=== PATIENT | female | born 1990 | race Caucasian/White ===

== ENCOUNTER 2016-08-16 05:03 | Emergency (ER) | payer OTHER ==
[~2016-08-16] VITALS: Ht 172.7 cm; Wt 92.4 kg
[~2016-08-16 05:03] MED LIST: TOPI25 PO
[2016-08-16 05:10] VITALS: BP 133/86; PULSE 60; RESP 18; TEMP 98.2; O2SAT 99
[2016-08-16 05:20] VITALS: BP 119/77; PULSE 56; RESP 18; O2SAT 100
[2016-08-16] MEDS ORDERED: SODIUM CHLORIDE 0.9% FLUSH 5 ML FLUSH IVF PRN (06:15)
[2016-08-16] MEDS ORDERED: SODIUM CHLOR 0.9% 1000 ML INJ 1,000 ML IV SCH (06:15)
[2016-08-16] MEDS ORDERED: ONDANSETRON HCL 4 MG/2 ML VIAL IVP ONE (06:15)
[2016-08-16] MEDS ORDERED: MORPHINE SULFATE 4 MG/ML INJ IV PUSH ONE (06:15)
--- NOTE | 2016-08-16 06:15 | PD ---
HPI Chief Complaint: GI Complaint Time Seen by Provider: 05:57 Travel History International Travel<30 days: No Contact w/Intl Traveler<30days: No Traveled to known affect area: No History of Present Illness HPI The patient is a 26-year-old female that complains of primarily lower abdominal pain along with diarrhea and nausea without vomiting for 4 years intermittently. It is been bothering her for the past 3 hours. She denies any blood in the stool or fever. She denies any foreign travel in the last 4 years. She has never had any abdominal surgery and still has her gallbladder and appendix. Her mother has lupus but she is not aware of any bowel problems running in the family. The patient is not sexually active with men. PFSH Past Medical History Asthma: Yes (childhood) Blood Disorders: No Cancer: No Cardiovascular Problems: No Diminished Hearing: No Endocrine: No Genitourinary: Yes (kidney stones) Immune Disorder: No Kidney Stones: Yes Musculoskeletal: No Neurologic: Yes (seizures) Psychiatric: Yes (bipolar, ptsd, borderline schizophrenia) Reproductive: No Immunizations Current: Yes Schizophrenia: Yes Seizures: Yes Tetanus Vaccination: < 5 Years Influenza Vaccination: No ?: Not LMP: 3 WEEKS AGO : 1 Para: 1 Past Surgical History Tonsillectomy: Yes Other Surgery: Yes (tonsillectomy) Social History Alcohol Use: Yes (OCC) Tobacco Use: Yes (1 PPD) Substance Use: No Allergies-Medications (Allergen,Severity, Reaction): Coded Allergies: [place] (Verified Allergy, Severe, RASH, 08/16/16) Latex (Verified Allergy, Severe, RASH, 08/16/16) Reported Meds & Prescriptions Reported Meds & Active Scripts Active Phenergan (Promethazine HCl) 25 Mg Tab 25 Mg PO Q6H PRN Lortab (Hydrocodone-Acetaminophen) 5-325 Mg Tab 1 Tab PO Q6H PRN Review of Systems Except as stated in HPI: all other systems reviewed are Neg Physical Exam Narrative GENERAL: Slightly dehydrated-appearing, well-developed patient in slight apparent distress with her abdominal discomfort. The vital signs are normal. SKIN: Warm and dry. HEAD: Normocephalic. EYES: No scleral icterus. No injection or drainage. NECK: Supple, trachea midline. No JVD or lymphadenopathy. CARDIOVASCULAR: Regular rate and rhythm without murmurs, gallops, or rubs. RESPIRATORY: Breath sounds equal bilaterally. No accessory muscle use. GASTROINTESTINAL: Abdomen soft, with tenderness in bilateral lower quadrants without guarding or rebound, nondistended. MUSCULOSKELETAL: No cyanosis, or edema. BACK: Nontender without obvious deformity. No CVA tenderness. Data Data Last Documented VS Vital Signs Date Time Temp Pulse Resp B/P Pulse Ox O2 Delivery O2 Flow Rate FiO2 08/16/16 05:20 56 18 119/77 100 Room Air 08/16/16 05:10 98.2 Orders Complete Blood Count With Diff (08/16/16 06:15) Comprehensive Metabolic Panel (08/16/16 06:15) Lipase (08/16/16 06:15) Urinalysis - C+S If Indicated (08/16/16 06:15) Ct Abd/Pel W Iv Contrast(Rout) (08/16/16 06:15) Iv Access Insert/Monitor (08/16/16 06:15) Ecg Monitoring (08/16/16 06:15) Oximetry (08/16/16 06:15) Morphine Inj (Morphine Inj) (08/16/16 06:15) Ondansetron Inj (Zofran Inj) (08/16/16 06:15) Sodium Chlor 0.9% 1000 Ml Inj (Ns 1000 M (08/16/16 06:15) Sodium Chloride 0.9% Flush (Ns Flush) (08/16/16 06:15) Iohexol 350 Inj (Omnipaque 350 Inj) (08/16/16 06:35) Labs Laboratory Tests Test 08/16/16 06:53 White Blood Count 7.1 TH/MM3 Red Blood Count 4.40 MIL/MM3 Hemoglobin 14.0 GM/DL Hematocrit 40.5 % Mean Corpuscular Volume 92.2 FL Mean Corpuscular Hemoglobin 31.9 PG Mean Corpuscular Hemoglobin 34.6 % Concent Red Cell Distribution Width 12.4 % Platelet Count 197 TH/MM3 Mean Platelet Volume 9.4 FL Neutrophils (%) (Auto) 57.9 % Lymphocytes (%) (Auto) 33.3 % Monocytes (%) (Auto) 6.5 % Eosinophils (%) (Auto) 1.5 % Basophils (%) (Auto) 0.8 % Neutrophils # (Auto) 4.0 TH/MM3 Lymphocytes # (Auto) 2.4 TH/MM3 Monocytes # (Auto) 0.5 TH/MM3 Eosinophils # (Auto) 0.1 TH/MM3 Basophils # (Auto) 0.1 TH/MM3 CBC Comment DIFF FINAL Differential Comment MDM Medical Decision Making Medical Screen Exam Complete: Yes Emergency Medical Condition: Yes Medical Record Reviewed: Yes Interpretation(s) The CT abdomen/pelvis with IV contrast shows no acute abnormality and a tiny nonobstructive left renal stone. The CBC is completely normal. Differential Diagnosis Irritable bowel syndrome, colitis, diverticulitis, abdominal pain etiology undetermined Narrative Course The patient has chronic abdominal pain etiology undetermined. The CT scan is normal. The patient needs to follow-up with a manager project for her chronic abdominal symptoms. She will be given Phenergan. Lortab 5 is given for pain as well as her diarrhea which she states is been very bad. Diagnosis Primary Impression: Chronic abdominal pain Additional Instructions: As we discussed, follow-up with a manager project. These pins have been going on for 4 years and you likely will benefit from endoscopy. Med/Other Pt SpecificInfo: Prescription(s) given Scripts Promethazine (Phenergan)25 Mg Tab25 Mg PO Q6H PRN (Nausea/Vomiting) #30 TAB Ref 0 Prov:Farhat Calderon MD 08/16/16 Hydrocodone-Acetaminophen (Lortab)5-325 Mg Tab1 Tab PO Q6H PRN (PAIN) #20 TAB Ref 0 Prov:Farhat Calderon MD 08/16/16 Disposition: 01 DISCHARGE HOME Condition: Stable Farhat Calderon MD Aug 16, 2016 06:15 Farhat Calderon MD Aug 16, 2016 06:15
[2016-08-16] MEDS ORDERED: IOHEXOL 350 MG/ML 10 ML VIAL (for RAD DIAG) IV ONE (06:35)
--- NOTE | 2016-08-16 06:48 | RADHPO ---
EXAM DATE/TIME: 08/16/2016 06:28 [facility] COMPARISON: No previous studies available for comparison. INDICATIONS : Lower abdominal pain today with diarrhea. IV CONTRAST: 80 cc Omnipaque 350 (iohexol) IV ORAL CONTRAST: No oral contrast ingested. RADIATION DOSE: 17.92 CTDIvol (mGy) MEDICAL HISTORY : Renal calculi. SURGICAL HISTORY : None. ENCOUNTER: Initial ACUITY: 1 day PAIN SCALE: 7/10 LOCATION: lower quadrant abdomen TECHNIQUE: Volumetric scanning of the abdomen and pelvis was performed. Using automated exposure control and ad justment of the mA and/or kV according to patient size, radiation dose was kept as low as reasonably achievable to obtain optimal diagnostic quality images. FINDINGS: LOWER LUNGS: The visualized lower lungs are clear. LIVER: Homogeneous density without lesion. There is no dilation of the biliary tree. No calcified gallston es. SPLEEN: Normal size without lesion. PANCREAS: Within normal limits. KIDNEYS: Normal in size and shape. There is no mass or hydronephrosis. There is a 2 mm nonobstructing left re nal stone. ADRENAL GLANDS: Within normal limits. VASCULAR: There is no aortic aneurysm. BOWEL/MESENTERY: The stomach, small bowel, and colon demonstrate no acute abnormality. There is no free intraperitone al air or fluid. The appendix is normal. ABDOMINAL WALL: Within normal limits. RETROPERITONEUM: There is no lymphadenopathy. BLADDER: No wall thickening or mass. REPRODUCTIVE: Within normal limits. INGUINAL: There is no lymphadenopathy or hernia. MUSCULOSKELETAL: Within normal limits for patient age. CONCLUSION: 1. No acute abnormality seen. 2. Tiny nonobstructing left renal stone. Yosef Kennedy MD on August 16, 2016 at 6:41 Board Certified Radiologist. This report was verified electronically.
[2016-08-16 07:03] LABS: BASOPHIL # 0.1 TH/MM3 (0-0.2); BASOPHIL % 0.8 % (0.0-2.0); EOSINOPHIL # 0.1 TH/MM3 (0-0.4); EOSINOPHIL % 1.5 % (0.0-4.0); HEMATOCRIT 40.5 % (35.0-46.0); HEMO FLAGS DIFF FINAL; LYMPH % 33.3 % (9.0-44.0); LYMPHOCYTE # 2.4 TH/MM3 (1.0-4.8); MEAN CELL VOLUME 92.2 FL (80.0-100.0); MEAN CORPUSCULAR HEMOGLOBIN 31.9 PG (27.0-34.0); MEAN CORPUSCULAR HGB CONC 34.6 % (32.0-36.0); MONO % 6.5 % (0.0-8.0); NEUT % 57.9 % (16.0-70.0); PLATELET COUNT 197 TH/MM3 (150-450); RED CELL DISTRIBUTION WIDTH 12.4 % (11.6-17.2); WHITE BLOOD COUNT 7.1 TH/MM3 (4.0-11.0)
[2016-08-16] MEDS ORDERED: PROM25TA5 PO (07:09)
[2016-08-16] MEDS ORDERED: HYDR-3533 PO (07:09)
[2016-08-16 07:10] VITALS: BP 112/78; PULSE 49; RESP 16; TEMP 98; O2SAT 99
[2016-08-16 07:12] LABS: BLOOD, URINE NEG (NEG); GLUCOSE,URINE NEG (NEG); KETONE, URINE NEG (NEG); NITRITE,URINE NEG (NEG)
[2016-08-16 07:14] LABS: CHLORIDE 106 MEQ/L (98-107); POTASSIUM 3.8 MEQ/L (3.5-5.1); SODIUM (NA) 139 MEQ/L (136-145)
[2016-08-16 07:16] LABS: METHOD OF COLLECTION CLEAN CATCH; URINE COLOR YELLOW (YELLW/STRAW)
[2016-08-16 07:18] LABS: COMMENT (UR) CULT NOT INDICATED; CULTURE IF INDICATED CULT NOT INDICATED; SQUAMOUS EPITHELIAL CELL URINE 0-5 /hpf (0-5); WBC, URINE 0-2 /hpf (0-5)
[2016-08-16 07:19] LABS: ANION GAP 9 MEQ/L (5-15); BICARBONATE 24.5 MEQ/L (21.0-32.0); BLOOD UREA NITROGEN 11 MG/DL (7-18)
[2016-08-16 07:21] LABS: ALT (GPT) 18 U/L (10-53); AST (GOT) 11 U/L (15-37)
[2016-08-16 07:22] LABS: GLOMERULAR FILTRATION RATE 132 ML/MIN (>89)
[2016-08-16 07:23] LABS: TOTAL BILIRUBIN ADULT 0.3 MG/DL (0.2-1.0)
[2016-08-16 07:24] LABS: ALKALINE PHOSPHATASE 68 U/L (45-117)
== END 2016-08-16 07:47 | disposition home or self-care (01) ==
LOC: PHED 05:03
DX: R10.84 Generalized abdominal pain (principal); G89.29 Other chronic pain; R19.7 Diarrhea, unspecified; R11.0 Nausea; Z87.442 Personal history of urinary calculi; F17.210 Nicotine dependence, cigarettes, uncomplicated
CPT/HCPCS: 74177; 80053; 81001; 83690; 85025; 96361; 96374; 96375; 99284; J2270; J2405; J7030; Q9967

== ENCOUNTER 2016-08-22 08:56 | Emergency (ER) | payer OTHER ==
[~2016-08-22] VITALS: Ht 172.7 cm; Wt 94.0 kg
[~2016-08-22 08:56] MED LIST changes: +HYDR-3533 PO; +PROM25TA5 PO; -TOPI25 PO
[2016-08-22 09:04] VITALS: BP 135/80; PULSE 79; RESP 16; TEMP 98.2; O2SAT 98
[2016-08-22] MEDS ORDERED: IBUPROFEN 600 MG TAB PO ONE (09:30)
--- NOTE | 2016-08-22 09:35 | RADHPO ---
EXAM DATE/TIME: 08/22/2016 09:24 [facility] COMPARISON: No previous studies available for comparison. INDICATIONS : Left foot pain after fall MEDICAL HISTORY : None. SURGICAL HISTORY : None. ENCOUNTER: Initial ACUITY: 2 days PAIN SCORE: 10/10 LOCATION: Left lateral foot. FINDINGS: Two view examination of the left foot demonstrates no soft tissue swelling, dislocation, or fracture. The calcaneus is intact. Bony mineralization is normal. CONCLUSION: Negative for fracture or dislocation. Follow up in 7-10 days is suggested if symptoms persist. James Conrad MD FACR on August 22, 2016 at 9:32 Board Certified Radiologist. This report was verified electronically.
[2016-08-22] MEDS ORDERED: IBUP-232 PO (10:43)
--- NOTE | 2016-08-22 10:43 | PD ---
HPI Chief Complaint: Musculoskeletal Complaint Time Seen by Provider: 09:14 Travel History International Travel<30 days: No Contact w/Intl Traveler<30days: No Traveled to known affect area: No History of Present Illness HPI 26yo F with no PMH presents to the ED with c/o left foot pain since yesterday. States she was drinking quite a bit yesterday and twisted her left foot and this morning had pain when she was walking on it. Pt able to ambulate and denies any head trauma or other complaint. Denies any fever, chest pain, sob, n /v, abdominal pain, weakness or numbness. PFSH Past Medical History Asthma: Yes (childhood) Blood Disorders: No Cancer: No Cardiovascular Problems: No Diminished Hearing: No Endocrine: No Genitourinary: Yes (kidney stones) Immune Disorder: No Kidney Stones: Yes Musculoskeletal: No Neurologic: Yes (seizures) Psychiatric: Yes (bipolar, ptsd, borderline schizophrenia) Reproductive: No Immunizations Current: Yes Schizophrenia: Yes Seizures: Yes ?: Not : 1 Para: 1 Past Surgical History Tonsillectomy: Yes Other Surgery: Yes (tonsillectomy) Social History Alcohol Use: Yes (OCC) Tobacco Use: Yes (1 PPD) Substance Use: No Allergies-Medications (Allergen,Severity, Reaction): Coded Allergies: [place] (Verified Allergy, Severe, RASH, 08/22/16) Latex (Verified Allergy, Severe, RASH, 08/22/16) Reported Meds & Prescriptions Reported Meds & Active Scripts Active No Active Prescriptions or Reported Medications Review of Systems Except as stated in HPI: all other systems reviewed are Neg Physical Exam Narrative GENERAL: 26yo F not in distress. SKIN: Warm and dry. HEAD: Atraumatic. Normocephalic. CARDIOVASCULAR: Regular rate and rhythm. No murmur appreciated. RESPIRATORY: No accessory muscle use. Clear to auscultation. Breath sounds equal bilaterally. GASTROINTESTINAL: Abdomen soft, non-tender, nondistended. Hepatic and splenic margins not palpable. MUSCULOSKELETAL: Left foot: +TTP base of fifth metatarsal. DP 2+. Sensation intact. No ttp left ankle, FROM left ankle. NEUROLOGICAL: Awake and alert. No obvious cranial nerve deficits. Motor grossly within normal limits. Normal speech. PSYCHIATRIC: Appropriate mood and affect; insight and judgment normal. Data Data Last Documented VS Vital Signs Date Time Temp Pulse Resp B/P Pulse Ox O2 Delivery O2 Flow Rate FiO2 08/22/16 09:04 98.2 79 16 135/80 98 Orders Foot, Limited (2vws) (08/22/16 ) Ibuprofen (Motrin) (08/22/16 09:30) MDM Medical Decision Making Medical Screen Exam Complete: Yes Emergency Medical Condition: Yes Interpretation(s) Last Impressions Foot X-Ray 08/22/16 0000 Signed Impressions: Service Date/Time: Monday, August 22, 2016 09:24 - CONCLUSION: Negative for fracture or dislocation. Follow up in 7-10 days is suggested if symptoms persist. James Conrad MD FACR Differential Diagnosis Fracture vs. sprain vs. contusion Narrative Course 26yo F well appearing with left foot pain for 1 day. Xray left foot showed negative for fracture or dislocation. Pt given ibuprofen which relieved pain. Return precautions given. Diagnosis Primary Impression: Left foot pain Patient Instructions: General Instructions Departure Forms: Tests/Procedures Additional Instructions: Please return to the ED if symptoms worsen. Please follow up with your PMD in 3 -7 days. Med/Other Pt SpecificInfo: Prescription(s) given Scripts Ibuprofen 600 Mg Aso597 Mg PO Q8HR PRN (PAIN) #20 TAB Ref 0 Prov:Emi Bradford DO 08/22/16 Disposition: 01 DISCHARGE HOME Condition: Stable Emi Bradford DO Aug 22, 2016 10:43
== END 2016-08-22 10:59 | disposition home or self-care (01) ==
LOC: PHED 08:56
DX: M79.672 Pain in left foot (principal); F17.200 Nicotine dependence, unspecified, uncomplicated; Z87.09 Personal history of other diseases of the respiratory system; Z87.442 Personal history of urinary calculi; Z86.69 Personal history of other diseases of the nervous system and sense organs; Z86.59 Personal history of other mental and behavioral disorders; X50.1XXA Overexertion from prolonged static or awkward postures, initial encounter
CPT/HCPCS: 73620; 99283

== ENCOUNTER 2016-11-15 21:31 | Observation (INO) | payer SELFPAY ==
[~2016-11-15] VITALS: Ht 172.7 cm; Wt 90.1 kg
[~2016-11-15 21:31] MED LIST changes: -HYDR-3533 PO; +IBUP-232 PO; -PROM25TA5 PO
[2016-11-15 21:33] VITALS: BP 161/107; PULSE 84; RESP 18; TEMP 98.7; O2SAT 98
[2016-11-15 22:03] VITALS: BP 142/84; PULSE 65; RESP 18; TEMP 98.7; O2SAT 99
[2016-11-15] MEDS ORDERED: SODIUM CHLORIDE 0.9% FLUSH 10 ML FLUSH IVF PRN (22:15)
--- NOTE | 2016-11-15 22:26 | PD ---
HPI Chief Complaint: Seizure Time Seen by Provider: 22:12 Travel History International Travel<30 days: No Contact w/Intl Traveler<30days: No Traveled to known affect area: No History of Present Illness HPI 26-year-old female presents to the emergency department by private transportation the care of her roommate for evaluation of seizure. Patient with history of seizure disorder. Patient reports diagnosis seizure disorder since age of 10. Patient was previously on Topamax and over the past 2-3 years decided to discontinue the medication on her own without assistance of a primary care provider or neurologist. Patient was seen by a neurologist 3-4 years ago was living in [place] but has not seen primary provider and urologist since moving to [place]. Patient states that she uses cannabis to manage her seizure disorder. Patient states she ran out of cannabis supplier recently and is evening had a seizure while on the stairs tonight injury without episode and roommate reported episode lasted 2-3 minutes series no incontinence or lip or tongue trauma. Subsequently on Saturday patient had multiple 15 second duration episodes of seizure-like activity. Reportedly today at 4 PM patient had a 6 minute episode of tonic type seizure with fixed gaze and postictal phase. Patient subsequently slept afterwards until just prior to arrival to the emergency department. Patient reportedly reports some right-sided peripheral visual loss noted today. Patient states that she decided to come to the emergency room for evaluation. Patient also states that she feels slightly off balance since Saturday. Patient has not been able to go to work since Saturday. Patient denies tobacco use or alcohol use or other substance use. Patient's had no recent fever or chills respiratory illness symptoms. No report of vomiting or diarrhea or chest pain shortness of breath rib pain abdominal pain back pain or extremity injury or pain. Patient's last urine was approximately a month ago. Patient reportedly has been under a lot of stress. PFSH Past Medical History Narrative Medical Asthma kidney stones seizure disorder bipolar disorder posterior medicine stress disorder borderline schizophrenia 1 para 1 tonsillectomy; cannabis use Asthma: Yes (childhood) Blood Disorders: No Cancer: No Cardiovascular Problems: No Diminished Hearing: No Endocrine: No Gastrointestinal Disorders: No Genitourinary: Yes (kidney stones) Immune Disorder: No Implanted Vascular Access Dvce: No Kidney Stones: Yes Musculoskeletal: No Neurologic: Yes (seizures) Psychiatric: Yes (bipolar, ptsd, borderline schizophrenia) Reproductive: No Immunizations Current: Yes Schizophrenia: Yes Seizures: Yes Tetanus Vaccination: < 5 Years Influenza Vaccination: No ?: Not LMP: yesterday : 1 Para: 1 Past Surgical History Tonsillectomy: Yes Other Surgery: Yes (tonsillectomy) Social History Alcohol Use: Yes (OCC) Tobacco Use: Yes (1 PPD) Substance Use: No Allergies-Medications (Allergen,Severity, Reaction): Coded Allergies: Alcala (Verified Allergy, Severe, RASH, 11/15/16) Latex (Verified Allergy, Severe, RASH, 11/15/16) Reported Meds & Prescriptions Reported Meds & Active Scripts Active No Active Prescriptions or Reported Medications Review of Systems Except as stated in HPI: all other systems reviewed are Neg General / Constitutional: No: Fever, Chills Eyes: No: Diploplia, Blurred Vision, Photophobia HENT: Positive: Headaches, No: Neck Pain Cardiovascular: No: Chest Pain or Discomfort Respiratory: No: Shortness of Breath Gastrointestinal: No: Nausea, Vomiting, Abdominal Pain Genitourinary: No: Dysuria, Flank Pain Musculoskeletal: Positive: Myalgias, Arthralgias Skin: No Rash Neurologic: Positive: Dizziness, Syncope, Focal Abnormalities, Coordination Problem, Ataxia, Headache, Seizures, No: Weakness, Change in Mentation, Slurred Speech Psychiatric: Positive: Anxiety, Substance Abuse (cannabis use) Hematologic/Lymphatic: No: Lymph Node Enlargement Physical Exam Narrative GENERAL: Well-nourished female in no acute distress no respiratory distress; GCS 15 SKIN: Warm and dry. HEAD: Atraumatic. Normocephalic. EYES: Pupils equal and round. No scleral icterus. No injection or drainage. ENT: No nasal bleeding or discharge. Mucous membranes pink and moist. NECK: Trachea midline. No JVD. CARDIOVASCULAR: Regular rate and rhythm. RESPIRATORY: No accessory muscle use. Clear to auscultation. Breath sounds equal bilaterally. GASTROINTESTINAL: Abdomen soft, non-tender, nondistended. Hepatic and splenic margins not palpable. MUSCULOSKELETAL: Extremities without clubbing, cyanosis, or edema. No obvious deformities. NEUROLOGICAL: Awake and alert. No obvious cranial nerve deficits. Motor grossly within normal limits. Five out of 5 muscle strength in the arms and legs. No pronator drift. No limb ataxia. Sensory exam intact. Normal speech. PSYCHIATRIC: Appropriate mood and affect; insight and judgment normal. Data Data Last Documented VS Vital Signs Date Time Temp Pulse Resp B/P Pulse Ox O2 Delivery O2 Flow Rate FiO2 11/15/16 23:55 67 18 138/80 99 Room Air 11/15/16 22:03 98.7 Orders Complete Blood Count With Diff (11/15/16 22:12) Alcohol (Ethanol) (11/15/16 22:12) Drug Screen, Random Urine (11/15/16 22:12) Electrocardiogram (11/15/16 ) Ct Brain W/O Iv Contrast(Rout) (11/15/16 ) Blood Glucose (11/15/16 22:12) Ecg Monitoring (11/15/16 22:12) Iv Access Insert/Monitor (11/15/16 22:12) Oximetry (11/15/16 22:12) Comprehensive Metabolic Panel (11/15/16 22:12) Sodium Chloride 0.9% Flush (Ns Flush) (11/15/16 22:15) Urinalysis - C+S If Indicated (11/15/16 22:12) Lactic Acid (11/15/16 22:12) Ammonia (11/15/16 22:12) Ed Urine Pregnancytest Poc (11/15/16 22:12) Magnesium (Mg) (11/15/16 22:12) Admit Order (Ed Use Only) (11/16/16 ) ^ Saline Lock (11/16/16 00:21) Resp Oxygen Abhijit C Titrat 1-4 L (11/16/16 ) Notify Dr: Other (11/16/16 00:21) Sodium Chloride 0.9% Flush (Ns Flush) (11/16/16 09:00) Sodium Chloride 0.9% Flush (Ns Flush) (11/16/16 00:30) ^ Seizure Precautions (11/16/16 00:21) Labs Laboratory Tests Test 11/15/16 11/15/16 22:30 22:40 White Blood Count 10.6 TH/MM3 Red Blood Count 4.86 MIL/MM3 Hemoglobin 15.3 GM/DL Hematocrit 44.9 % Mean Corpuscular Volume 92.4 FL Mean Corpuscular Hemoglobin 31.5 PG Mean Corpuscular Hemoglobin 34.1 % Concent Red Cell Distribution Width 12.4 % Platelet Count 244 TH/MM3 Mean Platelet Volume 9.3 FL Neutrophils (%) (Auto) 65.4 % Lymphocytes (%) (Auto) 26.5 % Monocytes (%) (Auto) 6.2 % Eosinophils (%) (Auto) 1.3 % Basophils (%) (Auto) 0.6 % Neutrophils # (Auto) 6.9 TH/MM3 Lymphocytes # (Auto) 2.8 TH/MM3 Monocytes # (Auto) 0.7 TH/MM3 Eosinophils # (Auto) 0.1 TH/MM3 Basophils # (Auto) 0.1 TH/MM3 CBC Comment DIFF FINAL Differential Comment Sodium Level 143 MEQ/L Potassium Level 3.7 MEQ/L Chloride Level 108 MEQ/L Carbon Dioxide Level 26.7 MEQ/L Anion Gap 8 MEQ/L Blood Urea Nitrogen 12 MG/DL Creatinine 0.64 MG/DL Estimat Glomerular Filtration 113 ML/MIN Rate Random Glucose 99 MG/DL Lactic Acid Level 1.0 mmol/L Calcium Level 8.6 MG/DL Magnesium Level 1.9 MG/DL Total Bilirubin 0.2 MG/DL Aspartate Amino Transf 15 U/L (AST/SGOT) Alanine Aminotransferase 23 U/L (ALT/SGPT) Alkaline Phosphatase 85 U/L Ammonia 29 MCMOL/L Total Protein 6.8 GM/DL Albumin 3.5 GM/DL Ethyl Alcohol Level LESS THAN 3 MG/DL Urine Color YELLOW Urine Turbidity CLEAR Urine pH 6.0 Urine Specific [place] 1.027 Urine Protein NEG mg/dL Urine Glucose (UA) NEG mg/dL Urine Ketones TRACE mg/dL Urine Occult Blood NEG Urine Nitrite NEG Urine Bilirubin NEG Urine Leukocyte Esterase TRACE Urine RBC 0-3 /hpf Urine WBC 6-8 /hpf Urine Squamous Epithelial 0-5 /hpf Cells Urine Amorphous Sediment FEW Urine Mucus MOD /lpf Microscopic Urinalysis Comment CULT NOT INDICATED Urine Opiates Screen NEG Urine Barbiturates Screen NEG Urine Amphetamines Screen NEG Urine Benzodiazepines Screen POS Urine Cocaine Screen NEG Urine Cannabinoids Screen POS MDM Medical Decision Making Medical Screen Exam Complete: Yes Emergency Medical Condition: Yes Medical Record Reviewed: Yes Interpretation(s) uds: Cannabinoids benzodiazepines [id number] hCG: Negative Urinalysis: Culture not indicated Lactic acid: 1.0, not elevated Serum ammonia level 29 not elevated Last Impressions Head CT 11/15/16 0000 Signed Impressions: Service Date/Time: October 22:51 - CONCLUSION: Normal examination. Kulwinder Garland MD CBC & BMP Diagram 11/15/16 22:30 Differential Diagnosis Seizure disorder, metabolic disturbance, TIA, CVA Narrative Course 26-year-old female with reported history of seizure disorder with recurrent seizures past 48 hours with episodes of tonic behavior and fall; imaging studies ordered; specimens collected for labs and sent for resulting Seizure precautions placed Imaging studies shows no acute abnormality Lab values resulted Concerning for possible benzodiazepine withdrawal versus uncontrolled seizures with known noncompliance; plan will be to admit patient to observation for management of seizure disorder versus pseudoseizures as well as neurology consult and possible EEG. Case discussed with on-call medicine service Diagnosis Primary Impression: Seizure disorder Additional Impressions: Noncompliance Substance abuse, daily use Admitting Information Admitting Physician Requests: Observation Scripts No Active Prescriptions or Reported Meds Vianney Carlson MD November 15, 2016 22:26
[2016-11-15 22:40] VITALS: RESP 18; O2SAT 99
[2016-11-15 22:47] LABS: AUTOMATED NEUTROPHIL # 6.9 TH/MM3 (1.8-7.7); BASOPHIL # 0.1 TH/MM3 (0-0.2); BASOPHIL % 0.6 % (0.0-2.0); EOSINOPHIL # 0.1 TH/MM3 (0-0.4); EOSINOPHIL % 1.3 % (0.0-4.0); HEMATOCRIT 44.9 % (35.0-46.0); HEMO FLAGS DIFF FINAL; LYMPH % 26.5 % (9.0-44.0); LYMPHOCYTE # 2.8 TH/MM3 (1.0-4.8); MEAN CELL VOLUME 92.4 FL (80.0-100.0); MEAN CORPUSCULAR HEMOGLOBIN 31.5 PG (27.0-34.0); MEAN CORPUSCULAR HGB CONC 34.1 % (32.0-36.0); MONO % 6.2 % (0.0-8.0); NEUT % 65.4 % (16.0-70.0); PLATELET COUNT 244 TH/MM3 (150-450); RED BLOOD COUNT 4.86 MIL/MM3 (4.00-5.30); RED CELL DISTRIBUTION WIDTH 12.4 % (11.6-17.2); WHITE BLOOD COUNT 10.6 TH/MM3 (4.0-11.0)
[2016-11-15 22:49] LABS: CHLORIDE 108 MEQ/L (98-107); POTASSIUM 3.7 MEQ/L (3.5-5.1); SODIUM (NA) 143 MEQ/L (136-145)
[2016-11-15 22:51] LABS: BLOOD, URINE NEG (NEG); GLUCOSE,URINE NEG (NEG); KETONE, URINE TRACE mg/dL (NEG); NITRITE,URINE NEG (NEG)
[2016-11-15 22:53] LABS: ANION GAP 8 MEQ/L (5-15); BICARBONATE 26.7 MEQ/L (21.0-32.0); BLOOD UREA NITROGEN 12 MG/DL (7-18); MAGNESIUM 1.9 MG/DL (1.5-2.5)
[2016-11-15 22:55] LABS: MUCUS URINE MOD /lpf (OCC); RBC, URINE 0-3 /hpf (0-3); URINE COLOR YELLOW (YELLW/STRAW)
[2016-11-15 22:55] LABS: ALT (GPT) 23 U/L (10-53)
[2016-11-15 22:56] LABS: AST (GOT) 15 U/L (15-37); GLOMERULAR FILTRATION RATE 113 ML/MIN (>89)
[2016-11-15 22:56] LABS: COCAINE, URINE NEG (NEG); COMMENT (UR) CULT NOT INDICATED; CULTURE IF INDICATED CULT NOT INDICATED; SQUAMOUS EPITHELIAL CELL URINE 0-5 /hpf (0-5)
[2016-11-15 22:57] LABS: TOTAL BILIRUBIN ADULT 0.2 MG/DL (0.2-1.0)
[2016-11-15 22:58] LABS: ALKALINE PHOSPHATASE 85 U/L (45-117)
[2016-11-15 23:06] LABS: BARBITURATES, URINE NEG (NEG)
[2016-11-15 23:07] LABS: AMPHETAMINE, URINE NEG (NEG)
--- NOTE | 2016-11-15 23:19 | RADHPO ---
EXAM DATE/TIME: 11/15/2016 22:51 [facility] COMPARISON: CT BRAIN W/O CONTRAST, May 17, 2015, 21:28. INDICATIONS : Syncope. Seizure. RADIATION DOSE: 61.86 CTDIvol (mGy) MEDICAL HISTORY : Seizures. SURGICAL HISTORY : None. ENCOUNTER: Initial ACUITY: 1 day PAIN SCALE: 5/10 LOCATION: cranial TECHNIQUE: Multiple contiguous axial images were obtained of the head. Using automated exposure control and adj ustment of the mA and/or kV according to patient size, radiation dose was kept as low as reasonably a chievable to obtain optimal diagnostic quality images. FINDINGS: CEREBRUM: The ventricles are normal for age. No evidence of midline shift, mass lesion, hemorrhage or acute in farction. No extra-axial fluid collections are seen. POSTERIOR FOSSA: The cerebellum and brainstem are intact. The 4th ventricle is midline. The cerebellopontine angle i s unremarkable. EXTRACRANIAL: The visualized portion of the orbits is intact. SKULL: The calvaria is intact. No evidence of skull fracture. CONCLUSION: Normal examination. Kulwinder Garland MD on November 15, 2016 at 23:18 Board Certified Radiologist. This report was verified electronically.
[2016-11-15 23:55] VITALS: BP 138/80; PULSE 67; RESP 18; O2SAT 99
[2016-11-16] MEDS ORDERED: SODIUM CHLORIDE 0.9% FLUSH 10 ML FLUSH IVF PRN (00:30)
[2016-11-16 00:36] VITALS: O2SAT 99
[2016-11-16] MEDS ORDERED: LORazepam 2 MG/ML VIAL IV PUSH PRN (01:00)
[2016-11-16] MEDS ORDERED: LACTULOSE SYRUP 20 GM/30 ML CUP PO PRN (01:00)
[2016-11-16] MEDS ORDERED: NALOXONE HCL 0.4 MG/ML AMP IV PRN (01:00)
[2016-11-16] MEDS ORDERED: SODIUM CHLORIDE 0.9% FLUSH 10 ML FLUSH IV FLUSH PRN (01:00)
[2016-11-16 01:53] VITALS: BP 136/82; PULSE 68; RESP 18; O2SAT 99
[2016-11-16] MEDS ORDERED: SODIUM CHLORIDE 0.9% FLUSH 10 ML FLUSH IV FLUSH SCH ×2 (09:00)
--- NOTE | 2016-11-17 16:11 | EKG ---
Date Performed: 11/15/2016 Time Performed: 22:29:06 PTAGE: 26 years EKG: Sinus bradycardia Normal ECG except for rate Since prevoius tracing 09/14/2014, R wave prog ression has improved, otherwise no significant change. PREVIOUS TRACING : 09/14/2014 10.48 DOCTOR: Armen Medina Interpretating Date/Time 11/17/2016 16:09:35
== END 2016-11-16 02:03 | disposition left against medical advice (07) ==
LOC: PHED 21:31 → PHEDA 11-16 00:22
PROVIDERS: ADMIT Internal Medicine; ATTEND Internal Medicine
DX: G40.909 Epilepsy, unspecified, not intractable, without status epilepticus (principal); H54.61 Unqualified visual loss, right eye, normal vision left eye; F12.90 Cannabis use, unspecified, uncomplicated; Z91.19 Patient's noncompliance with other medical treatment and regimen; J45.909 Unspecified asthma, uncomplicated; F20.9 Schizophrenia, unspecified; F17.200 Nicotine dependence, unspecified, uncomplicated; Z87.442 Personal history of urinary calculi
CPT/HCPCS: 70450; 80053; 80307; 81001; 82140; 83605; 83735; 84703; 85025; 93005; 99285; G0378